=== PATIENT | male | born 1960 | race Caucasian/White ===

== ENCOUNTER 2022-05-17 07:19 | Outpatient (CLI) | payer BC ==
[2022-05-17] MEDS ORDERED: Iopamidol 370 76% 100 ML VIAL ONE (09:20)
[2022-05-17] MEDS ORDERED: GASTROGRAFIN 30 ML BOT ONE (09:20)
== END 2022-05-17 07:20 | disposition home or self-care (01) ==
LOC: CT 07:19
PROVIDERS: ATTEND Surgery
DX: K35.33 Acute appendicitis with perforation, localized peritonitis, and gangrene, with abscess (principal); R18.8 Other ascites; J90 Pleural effusion, not elsewhere classified; K61.1 Rectal abscess; N30.80 Other cystitis without hematuria; M89.9 Disorder of bone, unspecified; Z98.890 Other specified postprocedural states
CPT/HCPCS: 74177

== ENCOUNTER → 2022-07-26 | Day surgery (SDC) | payer BC ==
[2022-07-25 11:29] VITALS: BMI 32.1
[~2022-07-26] MED LIST: FENTANYL 50 MCG/ML VIAL 50 MCG/ML VIAL ONE; FLU VACC QS2022-23(6MOS UP)/PF 60 MCG/0.5 ML SYRINGE IM ONE; Midazolam HCl 2 mg/2 ml Vial ONE; Sodium Bicarbonate 2.5 MEQ/5 ML VIAL ONE
[2022-07-26 10:00] VITALS: BP 110/61; TEMP 97.5
== END | disposition home or self-care (01) ==
LOC: CT 09:01
PROVIDERS: ATTEND Internal Medicine
DX: D61.818 Other pancytopenia (principal); M25.552 Pain in left hip; M89.8X9 Other specified disorders of bone, unspecified site; M06.9 Rheumatoid arthritis, unspecified; I10 Essential (primary) hypertension; K21.9 Gastro-esophageal reflux disease without esophagitis; Z53.8 Procedure and treatment not carried out for other reasons; Z79.899 Other long term (current) drug therapy
CPT/HCPCS: 76380; 77012; J2250; J3010

== ENCOUNTER 2022-10-03 12:31 | Inpatient (IN) | payer BC ==
[2022-10-03 13:51] LABS: #Lymphocytes 1.8 thou/uL (1.20-3.40); #Monocytes 0.9 thou/uL (0.11-0.59); #Neutrophils 5.2 thou/uL (1.40-6.50); %Basophils 0.3 % (0.0-1.0); %Eosinophils 0.5 % (0.0-10.0); %Lymphocytes 22.4 % (21.0-51.0); %Neutrophils 65.8 % (42.0-75.0); Hemoglobin 13.1 g/dL (14.0-18.0); Mean Corpuscular HGB CONC 33.2 g/dL (32.0-36.0); Mean Corpuscular Hemoglobin 29.7 pg (27.0-31.0); Mean Corpuscular Volume 89.4 fl (78.0-98.0); Platelet Count 172 10x3/uL (130-400); RBC Distribution Width 17.6 % (11.5-14.5); White Blood Cell (WBC) Count 7.9 10x3/uL (4.8-10.8)
[2022-10-03 14:10] LABS: ALT (SGPT) 10 U/L (8-55); AST (SGOT) 41 U/L (5-34); Alkaline Phosphatase 1344 U/L (40-110); Anion Gap 15 mmol/L (10-20); BUN (Urea Nitrogen) 15 mg/dL (8.4-25.7); Bilirubin, Total 1.8 mg/dL (0.2-1.2); Calc. Creatinine Clearance 0 mL/min (70-130); Carbon Dioxide 21 mmol/L (23-31); Chloride 100 mmol/L (98-107); Estimated GFR 113; Globulin 3.2 g/dL (2.4-3.5); Glucose 111 mg/dL (80-115); Magnesium 1.9 mg/dL (1.6-2.6); Potassium 4.2 mmol/L (3.5-5.1); Protein, Total 7.2 g/dL (5.8-8.1); Sodium 132 mmol/L (136-145)
[2022-10-03] MEDS ORDERED: Iopamidol-370 76% 500 ML 1 ML ONE (14:19)
[2022-10-03] MEDS ORDERED: HYDROcodone/Acetaminophen 10/325 mg Tablet ONE ×2 (15:09→21:55)
[2022-10-03] MEDS ORDERED: cefTRIAXone\\ROCEPHIN 1 GM VIAL ONE (15:24)
[2022-10-03] MEDS ORDERED: Morphine 4 MG/ML VIAL ONE (17:06)
[2022-10-03 17:27] LABS: Lactic Acid 1.5 mmol/L (0.5-2.2)
[2022-10-03 17:34] LABS: CK (CPK) 70 U/L (30-200); Lipase 25 U/L (8-78)
[2022-10-03 17:50] LABS: Bilirubin Negative (Negative); Blood, Urine Negative (Negative); Clarity Clear (Clear); Glucose, Urine (Dipstick) Normal (Negative); Ketone, Urine Negative (Negative); Leukocyte Negative Leu/uL (Negative); Nitrite Negative (Negative); Protein, Urine (Dipstick) 10 mg/dL (Neg-Trace); Specific Gravity, Urine 1.029 (1.002-1.036)
[2022-10-03 19:59] LABS: SARS-CoV-2 NAA Rapid Test Not Detected (NotDetected)
[2022-10-03] MEDS ORDERED: Acetaminophen 325 MG TAB PO PRN ×2 (20:18→22:30)
[2022-10-03] MEDS: HYDROcodone/Acetaminophen 10/325 mg Tablet PO PRN (22:02)
[2022-10-03] MEDS ORDERED: Ondansetron ODT 8 MG TAB PO PRN (22:05)
[2022-10-04] MEDS ORDERED: HYDROcodone/Acetaminophen 10/325 mg Tablet ONE ×2 (02:04→09:07)
[2022-10-04] MEDS: HYDROcodone/Acetaminophen 10/325 mg Tablet PO PRN ×4 (02:06→20:55)
[2022-10-04 08:34] LABS: INR-International Normal Ratio 1.3; Prothrombin Time 16.5 sec (12.0-14.7)
[2022-10-04] MEDS: Lactated Ringer's 1,000 ML IV SCH ×2 (08:35→14:26)
[2022-10-04] MEDS: Magnesium Oxide 400 MG TAB PO SCH (09:00)
[2022-10-04] MEDS ORDERED: Gabapentin 300 MG CAP PO SCH (09:00)
[2022-10-04] MEDS: Tamsulosin HCl 0.4 MG CAP PO SCH (09:00)
[2022-10-04] MEDS: Methocarbamol 500 MG TAB PO SCH ×2 (09:00→21:06)
[2022-10-04] MEDS ORDERED: Apalutamide [Erleada] 60 MG Tablet PO SCH (09:00)
[2022-10-04] MEDS ORDERED: Polyethylene Glycol 3350 17 GM Packet PO SCH (09:00)
[2022-10-04] MEDS: Calcium Carbonate 600 MG + Vit D TAB PO SCH (09:00)
[2022-10-04] MEDS ORDERED: Tumeric/Ging/Olive/Oreg/Capryl [Candicidal Capsule] PO SCH (09:00)
[2022-10-04] MEDS ORDERED: Naloxone HCl 2 MG in Sodium Chloride 0.9% 500 ML IV PRN (09:47)
[2022-10-04] MEDS ORDERED: Lorazepam 2 MG/ML VIAL SLOW IVP SCH (12:30)
[2022-10-04] MEDS ORDERED: LORazepam 2 MG/ML SYR.(CARPUJECT) ONE (12:35)
[2022-10-04] MEDS: Gabapentin 300 MG CAP PO SCH ×2 (14:26→20:54)
[2022-10-04 14:32] VITALS: BMI 24.4
[2022-10-04] MEDS: fentaNYL 50 mcg/hour Patch TD SCH (15:03)
[2022-10-04] MEDS: Morphine 2 MG/ML VIAL SLOW IVP PRN ×2 (18:01→21:07)
[2022-10-04] MEDS: Famotidine 20 MG TAB PO SCH (20:56)
[2022-10-04] MEDS: Mirtazapine 15 MG Soltab PO SCH (20:56)
[2022-10-04] MEDS: Senokot 8.6 MG TAB PO SCH (20:56)
[2022-10-04] MEDS: Polyethylene Glycol 3350 17 GM Packet PO SCH (20:57)
[2022-10-05] MEDS: Lactated Ringer's 1,000 ML IV SCH (00:30)
[2022-10-05] MEDS: Calcium Carbonate 600 MG + Vit D TAB PO SCH (08:13)
[2022-10-05] MEDS: Magnesium Oxide 400 MG TAB PO SCH (08:13)
[2022-10-05] MEDS: Polyethylene Glycol 3350 17 GM Packet PO SCH ×2 (08:13→21:01)
[2022-10-05] MEDS: Gabapentin 300 MG CAP PO SCH ×3 (08:13→20:58)
[2022-10-05] MEDS: Tamsulosin HCl 0.4 MG CAP PO SCH (08:14)
[2022-10-05] MEDS: Morphine 2 MG/ML VIAL SLOW IVP PRN (08:29)
[2022-10-05] MEDS: Methocarbamol 500 MG TAB PO SCH ×2 (13:34→20:59)
[2022-10-05] MEDS: HYDROcodone/Acetaminophen 10/325 mg Tablet PO PRN ×2 (13:36→21:06)
[2022-10-05] MEDS: Mirtazapine 15 MG Soltab PO SCH (20:58)
[2022-10-05] MEDS: Famotidine 20 MG TAB PO SCH (20:58)
[2022-10-05] MEDS: Senokot 8.6 MG TAB PO SCH (21:01)
[2022-10-06] MEDS: HYDROcodone/Acetaminophen 10/325 mg Tablet PO PRN ×4 (04:54→22:50)
[2022-10-06] MEDS: Gabapentin 300 MG CAP PO SCH ×3 (09:42→21:08)
[2022-10-06] MEDS: Calcium Carbonate 600 MG + Vit D TAB PO SCH (09:42)
[2022-10-06] MEDS: Methocarbamol 500 MG TAB PO SCH ×2 (09:42→21:08)
[2022-10-06] MEDS: Tamsulosin HCl 0.4 MG CAP PO SCH (09:43)
[2022-10-06] MEDS: Magnesium Oxide 400 MG TAB PO SCH (09:43)
[2022-10-06] MEDS: Polyethylene Glycol 3350 17 GM Packet PO SCH ×2 (09:43→21:07)
[2022-10-06] MEDS: Senokot 8.6 MG TAB PO SCH (21:06)
[2022-10-06] MEDS: Famotidine 20 MG TAB PO SCH (21:07)
[2022-10-06] MEDS: Mirtazapine 15 MG Soltab PO SCH (21:39)
[2022-10-07] MEDS: HYDROcodone/Acetaminophen 10/325 mg Tablet PO PRN ×2 (04:58→13:14)
[2022-10-07] MEDS ORDERED: Magnevist 469MG/ML 20 ML VIAL ONE ×2 (09:07)
[2022-10-07] MEDS: Methocarbamol 500 MG TAB PO SCH ×2 (09:44→20:21)
[2022-10-07] MEDS: Calcium Carbonate 600 MG + Vit D TAB PO SCH (09:45)
[2022-10-07] MEDS: Tamsulosin HCl 0.4 MG CAP PO SCH (09:45)
[2022-10-07] MEDS: Gabapentin 300 MG CAP PO SCH ×3 (09:45→20:21)
[2022-10-07] MEDS: Magnesium Oxide 400 MG TAB PO SCH (09:49)
[2022-10-07] MEDS: Lactated Ringer's 500 ML IV SCH ×2 (09:51→18:18)
[2022-10-07] MEDS: Polyethylene Glycol 3350 17 GM Packet PO SCH ×2 (10:10→19:38)
[2022-10-07 10:58] LABS: Anion Gap 9 mmol/L (10-20); BUN (Urea Nitrogen) 6 mg/dL (8.4-25.7); Calc. Creatinine Clearance 216 mL/min (70-130); Calcium 8.6 mg/dL (7.8-10.44); Carbon Dioxide 27 mmol/L (23-31); Chloride 103 mmol/L (98-107); Estimated GFR 122; Glucose 113 mg/dL (80-115); Magnesium 1.8 mg/dL (1.6-2.6); Phosphorus 3.3 mg/dL (2.3-4.7); Potassium 4.2 mmol/L (3.5-5.1); Sodium 135 mmol/L (136-145)
[2022-10-07] MEDS ORDERED: Morphine 2 MG/ML VIAL SLOW IVP PRN (11:04)
[2022-10-07] MEDS ORDERED: Morphine 4 MG/ML VIAL SLOW IVP SCH (13:40)
[2022-10-07] MEDS: fentaNYL 50 mcg/hour Patch TD SCH (16:39)
[2022-10-07] MEDS: Lactated Ringer's 1,000 ML IV SCH (18:16)
[2022-10-07] MEDS: Morphine 2 MG/ML VIAL SLOW IVP PRN (19:34)
[2022-10-07] MEDS: Famotidine 20 MG TAB PO SCH (20:21)
[2022-10-07] MEDS: Mirtazapine 15 MG Soltab PO SCH (20:21)
[2022-10-07] MEDS: Senokot 8.6 MG TAB PO SCH (20:21)
[2022-10-08] MEDS: Lactated Ringer's 1,000 ML IV SCH (03:30)
[2022-10-08] MEDS: Morphine 2 MG/ML VIAL SLOW IVP PRN (05:27)
[2022-10-08] MEDS ORDERED: Morphine 2 MG/ML VIAL SLOW IVP PRN (10:17)
[2022-10-08 10:28] LABS: #Eosinphils 0.1 thou/uL (0.0-0.7); #Lymphocytes 1.5 thou/uL (1.20-3.40); #Monocytes 0.3 thou/uL (0.11-0.59); %Basophils 0.3 % (0.0-1.0); %Eosinophils 2.9 % (0.0-10.0); %Lymphocytes 36.9 % (21.0-51.0); %Monocytes 8.4 % (0.0-10.0); %Neutrophils 51.5 % (42.0-75.0); Hemoglobin 10.9 g/dL (14.0-18.0); Mean Corpuscular HGB CONC 31.3 g/dL (32.0-36.0); Mean Corpuscular Hemoglobin 28.6 pg (27.0-31.0); Mean Corpuscular Volume 91.2 fl (78.0-98.0); Mean Platelet Volume 6.7 fL (7.4-10.4); Platelet Count 151 10x3/uL (130-400); RBC Distribution Width 16.8 % (11.5-14.5)
[2022-10-08 10:52] LABS: ALT (SGPT) 13 U/L (8-55); AST (SGOT) 28 U/L (5-34); Albumin 3.2 g/dL (3.4-4.8); Alkaline Phosphatase 981 U/L (40-110); Anion Gap 11 mmol/L (10-20); BUN (Urea Nitrogen) 7 mg/dL (8.4-25.7); Bilirubin, Total 0.8 mg/dL (0.2-1.2); Calc. Creatinine Clearance 216 mL/min (70-130); Calcium 8.4 mg/dL (7.8-10.44); Carbon Dioxide 25 mmol/L (23-31); Chloride 102 mmol/L (98-107); Estimated GFR 122; Globulin 2.8 g/dL (2.4-3.5); Glucose 98 mg/dL (80-115); Potassium 4.2 mmol/L (3.5-5.1); Sodium 134 mmol/L (136-145)
[2022-10-08] MEDS: HYDROcodone/Acetaminophen 10/325 mg Tablet PO SCH ×3 (11:54→23:15)
[2022-10-08] MEDS ORDERED: Sodium Bicarbonate 2.5 MEQ/5 ML VIAL ONE (12:43)
[2022-10-08] MEDS ORDERED: fentaNYL 75 mcg/hour Patch TD SCH (13:00)
[2022-10-08] MEDS ORDERED: Fentanyl 250 MCG/5 ML VIAL ONE (13:21)
[2022-10-08] MEDS ORDERED: Midazolam HCl 2 mg/2 ml Vial ONE (13:21)
[2022-10-08] MEDS ORDERED: PROPOFOL 200 MG/20 ML VIAL ONE (13:35)
[2022-10-08] MEDS ORDERED: PHENYLEPHRINE-NS 100 MCG/ML 10 ML SYRINGE ONE (13:35)
[2022-10-08] MEDS ORDERED: Lidocaine 1% PF 5 ML VIAL ONE (13:35)
[2022-10-08] MEDS ORDERED: Ondansetron PF 4 MG/2 ML Vial ONE (13:35)
[2022-10-08] MEDS ORDERED: Rocuronium Bromide 10 MG/ML (10ML VIAL) ONE (13:35)
[2022-10-08] MEDS ORDERED: SUGAMMADEX SODIUM 200 MG/2 ML VIAL ONE (14:01)
[2022-10-08] MEDS ORDERED: Ondansetron HCl/PF 4 MG/2 ML Vial IVP PRN (14:52)
[2022-10-08] MEDS ORDERED: HYDROmorphone 2 MG/ML VIAL SLOW IVP PRN (14:52)
[2022-10-08] MEDS ORDERED: Promethazine HCl 25 MG/ML VIAL IM PRN (14:52)
[2022-10-08] MEDS ORDERED: Morphine 2 MG/ML VIAL ONE (15:38)
[2022-10-08] MEDS: Polyethylene Glycol 3350 17 GM Packet PO SCH ×2 (16:06→20:19)
[2022-10-08] MEDS: Calcium Carbonate 600 MG + Vit D TAB PO SCH (16:06)
[2022-10-08] MEDS: Methocarbamol 500 MG TAB PO SCH ×2 (16:09→20:18)
[2022-10-08] MEDS: Gabapentin 300 MG CAP PO SCH ×3 (16:15→20:18)
[2022-10-08] MEDS: Tamsulosin HCl 0.4 MG CAP PO SCH (16:15)
[2022-10-08] MEDS: Magnesium Oxide 400 MG TAB PO SCH (16:16)
[2022-10-08] MEDS ORDERED: Methocarbamol 500 MG TAB PO SCH (17:00)
[2022-10-08] MEDS: Morphine 2 MG/ML VIAL SLOW IVP SCH ×3 (18:05→20:19)
[2022-10-08] MEDS: Famotidine 20 MG TAB PO SCH (20:17)
[2022-10-08] MEDS: Senokot 8.6 MG TAB PO SCH (20:17)
[2022-10-08] MEDS: Mirtazapine 15 MG Soltab PO SCH (20:18)
[2022-10-09] MEDS ORDERED: Morphine 2 MG/ML VIAL SLOW IVP PRN (03:08)
[2022-10-09] MEDS: HYDROcodone/Acetaminophen 10/325 mg Tablet PO SCH ×4 (05:49→23:45)
[2022-10-09 07:02] LABS: #Eosinphils 0.1 thou/uL (0.0-0.7); #Lymphocytes 1.3 thou/uL (1.20-3.40); #Monocytes 0.4 thou/uL (0.11-0.59); #Neutrophils 2.4 thou/uL (1.40-6.50); %Basophils 0.3 % (0.0-1.0); %Eosinophils 1.8 % (0.0-10.0); %Lymphocytes 31.5 % (21.0-51.0); %Monocytes 9.1 % (0.0-10.0); %Neutrophils 57.3 % (42.0-75.0); Hemoglobin 10.4 g/dL (14.0-18.0); Mean Corpuscular HGB CONC 32.7 g/dL (32.0-36.0); Mean Corpuscular Hemoglobin 29.7 pg (27.0-31.0); Mean Platelet Volume 6.9 fL (7.4-10.4); Platelet Count 152 10x3/uL (130-400); RBC Distribution Width 16.7 % (11.5-14.5); White Blood Cell (WBC) Count 4.2 10x3/uL (4.8-10.8)
[2022-10-09] MEDS: Polyethylene Glycol 3350 17 GM Packet PO SCH ×2 (09:29→20:41)
[2022-10-09] MEDS: Methocarbamol 500 MG TAB PO SCH ×2 (09:29→20:40)
[2022-10-09] MEDS: Magnesium Oxide 400 MG TAB PO SCH (09:29)
[2022-10-09] MEDS: Tamsulosin HCl 0.4 MG CAP PO SCH (09:29)
[2022-10-09] MEDS: Calcium Carbonate 600 MG + Vit D TAB PO SCH (09:30)
[2022-10-09] MEDS: Gabapentin 300 MG CAP PO SCH ×3 (09:33→20:40)
[2022-10-09] MEDS: Morphine 4 MG/ML VIAL SLOW IVP SCH ×3 (12:58→20:37)
[2022-10-09] MEDS ORDERED: DRY MOUTH SPRAY MM PRN (15:14)
[2022-10-09] MEDS: Mirtazapine 15 MG Soltab PO SCH (20:39)
[2022-10-09] MEDS: Famotidine 20 MG TAB PO SCH (20:40)
[2022-10-09] MEDS: Senokot 8.6 MG TAB PO SCH (20:41)
[2022-10-10] MEDS: Morphine 4 MG/ML VIAL SLOW IVP SCH ×4 (01:18→13:32)
[2022-10-10] MEDS: HYDROcodone/Acetaminophen 10/325 mg Tablet PO SCH ×4 (05:59→20:54)
[2022-10-10 08:50] LABS: #Eosinphils 0.1 thou/uL (0.0-0.7); #Lymphocytes 1.2 thou/uL (1.20-3.40); #Monocytes 0.4 thou/uL (0.11-0.59); #Neutrophils 2.5 thou/uL (1.40-6.50); %Basophils 0.5 % (0.0-1.0); %Eosinophils 1.5 % (0.0-10.0); %Lymphocytes 28.9 % (21.0-51.0); %Monocytes 10.2 % (0.0-10.0); %Neutrophils 58.9 % (42.0-75.0); Hemoglobin 10.6 g/dL (14.0-18.0); Mean Corpuscular HGB CONC 32.8 g/dL (32.0-36.0); Mean Corpuscular Hemoglobin 29.8 pg (27.0-31.0); Mean Corpuscular Volume 90.8 fl (78.0-98.0); Platelet Count 137 10x3/uL (130-400); RBC Distribution Width 16.5 % (11.5-14.5); Red Blood Cell (RBC) Count 3.54 mill/uL (4.70-6.10); White Blood Cell (WBC) Count 4.2 10x3/uL (4.8-10.8)
[2022-10-10] MEDS ORDERED: fentaNYL 75 mcg/hour Patch TD SCH (09:00)
[2022-10-10] MEDS: Polyethylene Glycol 3350 17 GM Packet PO SCH ×2 (09:18→20:47)
[2022-10-10] MEDS: Methocarbamol 500 MG TAB PO SCH ×2 (09:18→20:55)
[2022-10-10] MEDS: Tamsulosin HCl 0.4 MG CAP PO SCH (09:18)
[2022-10-10] MEDS: Calcium Carbonate 600 MG + Vit D TAB PO SCH (09:19)
[2022-10-10] MEDS: Gabapentin 300 MG CAP PO SCH ×3 (09:19→20:54)
[2022-10-10] MEDS: Magnesium Oxide 400 MG TAB PO SCH (09:19)
[2022-10-10 14:53] LABS: ALT (SGPT) 9 U/L (8-55); AST (SGOT) 26 U/L (5-34); Albumin 3.2 g/dL (3.4-4.8); Alkaline Phosphatase 909 U/L (40-110); Anion Gap 11 mmol/L (10-20); BUN (Urea Nitrogen) 7 mg/dL (8.4-25.7); Calc. Creatinine Clearance 221 mL/min (70-130); Calcium 8.8 mg/dL (7.8-10.44); Carbon Dioxide 25 mmol/L (23-31); Chloride 99 mmol/L (98-107); Estimated GFR 123; Globulin 2.5 g/dL (2.4-3.5); Glucose 96 mg/dL (80-115); Protein, Total 5.7 g/dL (5.8-8.1); Sodium 131 mmol/L (136-145)
[2022-10-10 15:07] LABS: #Eosinphils 0.1 thou/uL (0.0-0.7); #Lymphocytes 1.5 thou/uL (1.20-3.40); #Monocytes 0.4 thou/uL (0.11-0.59); #Neutrophils 2.3 thou/uL (1.40-6.50); %Basophils 0.4 % (0.0-1.0); %Eosinophils 1.4 % (0.0-10.0); %Lymphocytes 34.2 % (21.0-51.0); %Monocytes 10.1 % (0.0-10.0); %Neutrophils 53.9 % (42.0-75.0); Hemoglobin 10.5 g/dL (14.0-18.0); Mean Corpuscular HGB CONC 32.2 g/dL (32.0-36.0); Mean Corpuscular Hemoglobin 29.1 pg (27.0-31.0); Mean Corpuscular Volume 90.4 fl (78.0-98.0); Mean Platelet Volume 7.2 fL (7.4-10.4); Platelet Count 146 10x3/uL (130-400); RBC Distribution Width 16.6 % (11.5-14.5); Red Blood Cell (RBC) Count 3.61 mill/uL (4.70-6.10); White Blood Cell (WBC) Count 4.3 10x3/uL (4.8-10.8)
[2022-10-10] MEDS ORDERED: Iopamidol-370 76% 500 ML 1 ML ONE (15:20)
[2022-10-10] MEDS ORDERED: Bisacodyl 5 MG TAB PO PRN (15:47)
[2022-10-10] MEDS: Naproxen 500 MG TAB PO SCH (20:49)
[2022-10-10] MEDS: Famotidine 20 MG TAB PO SCH (20:49)
[2022-10-10] MEDS: Mirtazapine 15 MG Soltab PO SCH (20:55)
[2022-10-10] MEDS: Senokot 8.6 MG TAB PO SCH (21:07)
[2022-10-11] MEDS: HYDROcodone/Acetaminophen 10/325 mg Tablet PO SCH ×3 (00:25→09:20)
[2022-10-11] MEDS ORDERED: Morphine 4 MG/ML VIAL SLOW IVP SCH ×2 (00:45→02:15)
[2022-10-11 05:12] LABS: #Eosinphils 0.1 thou/uL (0.0-0.7); #Lymphocytes 1.5 thou/uL (1.20-3.40); #Monocytes 0.5 thou/uL (0.11-0.59); #Neutrophils 2.1 thou/uL (1.40-6.50); %Basophils 0.3 % (0.0-1.0); %Eosinophils 2.3 % (0.0-10.0); %Lymphocytes 36.9 % (21.0-51.0); %Monocytes 10.8 % (0.0-10.0); %Neutrophils 49.8 % (42.0-75.0); Hemoglobin 10.4 g/dL (14.0-18.0); Mean Corpuscular HGB CONC 31.9 g/dL (32.0-36.0); Mean Corpuscular Hemoglobin 28.9 pg (27.0-31.0); Mean Corpuscular Volume 90.4 fl (78.0-98.0); Mean Platelet Volume 7.1 fL (7.4-10.4); Platelet Count 142 10x3/uL (130-400); RBC Distribution Width 16.5 % (11.5-14.5); Red Blood Cell (RBC) Count 3.59 mill/uL (4.70-6.10); White Blood Cell (WBC) Count 4.2 10x3/uL (4.8-10.8)
[2022-10-11 05:31] LABS: ALT (SGPT) 10 U/L (8-55); AST (SGOT) 26 U/L (5-34); Albumin 3.2 g/dL (3.4-4.8); Alkaline Phosphatase 921 U/L (40-110); Anion Gap 12 mmol/L (10-20); BUN (Urea Nitrogen) 9 mg/dL (8.4-25.7); Bilirubin, Total 0.9 mg/dL (0.2-1.2); Calc. Creatinine Clearance 201 mL/min (70-130); Calcium 8.3 mg/dL (7.8-10.44); Carbon Dioxide 26 mmol/L (23-31); Chloride 101 mmol/L (98-107); Estimated GFR 120; Globulin 2.8 g/dL (2.4-3.5); Glucose 121 mg/dL (80-115); Potassium 3.9 mmol/L (3.5-5.1); Sodium 135 mmol/L (136-145)
[2022-10-11] MEDS: Gabapentin 300 MG CAP PO SCH ×3 (09:19→20:26)
[2022-10-11] MEDS: Polyethylene Glycol 3350 17 GM Packet PO SCH ×2 (09:20→20:25)
[2022-10-11] MEDS: Tamsulosin HCl 0.4 MG CAP PO SCH (09:20)
[2022-10-11] MEDS: Calcium Carbonate 600 MG + Vit D TAB PO SCH (09:21)
[2022-10-11] MEDS: Methocarbamol 500 MG TAB PO SCH ×2 (09:22→20:26)
[2022-10-11] MEDS: Magnesium Oxide 400 MG TAB PO SCH (09:22)
[2022-10-11] MEDS: Naproxen 500 MG TAB PO SCH ×2 (09:22→20:26)
[2022-10-11] MEDS ORDERED: Magnevist 469MG/ML 20 ML VIAL ONE (10:53)
[2022-10-11] MEDS: Morphine 4 MG/ML VIAL SLOW IVP PRN ×4 (13:01→19:43)
[2022-10-11] MEDS: fentaNYL 100 mcg/hour Patch TD SCH (13:30)
[2022-10-11] MEDS: Mirtazapine 15 MG Soltab PO SCH (20:26)
[2022-10-11] MEDS: Famotidine 20 MG TAB PO SCH (20:27)
[2022-10-11] MEDS: Senokot 8.6 MG TAB PO SCH (20:27)
[2022-10-12] MEDS: Morphine 4 MG/ML VIAL SLOW IVP PRN ×9 (00:24→21:02)
[2022-10-12 05:18] LABS: #Eosinphils 0.1 thou/uL (0.0-0.7); #Monocytes 0.4 thou/uL (0.11-0.59); #Neutrophils 2.3 thou/uL (1.40-6.50); %Basophils 0.2 % (0.0-1.0); %Eosinophils 1.4 % (0.0-10.0); %Lymphocytes 27.6 % (21.0-51.0); %Monocytes 9.6 % (0.0-10.0); %Neutrophils 61.2 % (42.0-75.0); Hemoglobin 10.3 g/dL (14.0-18.0); Mean Corpuscular HGB CONC 32.9 g/dL (32.0-36.0); Mean Corpuscular Hemoglobin 29.8 pg (27.0-31.0); Mean Corpuscular Volume 90.6 fl (78.0-98.0); Platelet Count 143 10x3/uL (130-400); RBC Distribution Width 16.4 % (11.5-14.5); Red Blood Cell (RBC) Count 3.46 mill/uL (4.70-6.10); White Blood Cell (WBC) Count 3.8 10x3/uL (4.8-10.8)
[2022-10-12 05:40] LABS: ALT (SGPT) 7 U/L (8-55); AST (SGOT) 24 U/L (5-34); Albumin 3.3 g/dL (3.4-4.8); Alkaline Phosphatase 876 U/L (40-110); Anion Gap 11 mmol/L (10-20); BUN (Urea Nitrogen) 9 mg/dL (8.4-25.7); Bilirubin, Total 0.7 mg/dL (0.2-1.2); Calc. Creatinine Clearance 221 mL/min (70-130); Calcium 8.1 mg/dL (7.8-10.44); Carbon Dioxide 27 mmol/L (23-31); Chloride 100 mmol/L (98-107); Estimated GFR 123; Globulin 2.6 g/dL (2.4-3.5); Glucose 129 mg/dL (80-115); Potassium 4.3 mmol/L (3.5-5.1); Protein, Total 5.9 g/dL (5.8-8.1); Sodium 134 mmol/L (136-145)
[2022-10-12] MEDS: Gabapentin 300 MG CAP PO SCH ×3 (08:56→21:42)
[2022-10-12] MEDS: Methocarbamol 500 MG TAB PO SCH ×2 (08:57→21:43)
[2022-10-12] MEDS: Tamsulosin HCl 0.4 MG CAP PO SCH (08:57)
[2022-10-12] MEDS: Naproxen 500 MG TAB PO SCH ×2 (08:57→21:41)
[2022-10-12] MEDS: Calcium Carbonate 600 MG + Vit D TAB PO SCH (08:58)
[2022-10-12] MEDS: Magnesium Oxide 400 MG TAB PO SCH (08:58)
[2022-10-12] MEDS: Polyethylene Glycol 3350 17 GM Packet PO SCH ×2 (08:58→21:40)
[2022-10-12] MEDS: Senokot 8.6 MG TAB PO SCH (21:42)
[2022-10-12] MEDS: Famotidine 20 MG TAB PO SCH (21:43)
[2022-10-12] MEDS: Mirtazapine 15 MG Soltab PO SCH (21:43)
[2022-10-13 05:39] LABS: #Eosinphils 0.1 thou/uL (0.0-0.7); #Lymphocytes 1.1 thou/uL (1.20-3.40); #Monocytes 0.3 thou/uL (0.11-0.59); #Neutrophils 1.9 thou/uL (1.40-6.50); %Basophils 0.8 % (0.0-1.0); %Eosinophils 2.6 % (0.0-10.0); %Lymphocytes 31.9 % (21.0-51.0); %Monocytes 7.8 % (0.0-10.0); %Neutrophils 56.9 % (42.0-75.0); Hemoglobin 10.1 g/dL (14.0-18.0); Mean Corpuscular HGB CONC 32.2 g/dL (32.0-36.0); Mean Corpuscular Hemoglobin 29.2 pg (27.0-31.0); Mean Corpuscular Volume 90.8 fl (78.0-98.0); Mean Platelet Volume 6.7 fL (7.4-10.4); Platelet Count 154 10x3/uL (130-400); RBC Distribution Width 16.2 % (11.5-14.5); Red Blood Cell (RBC) Count 3.47 mill/uL (4.70-6.10); White Blood Cell (WBC) Count 3.4 10x3/uL (4.8-10.8)
[2022-10-13 06:04] LABS: ALT (SGPT) Less than 7 U/L (8-55); AST (SGOT) 26 U/L (5-34); Albumin 3.1 g/dL (3.4-4.8); Alkaline Phosphatase 857 U/L (40-110); Anion Gap 12 mmol/L (10-20); BUN (Urea Nitrogen) 8 mg/dL (8.4-25.7); Bilirubin, Total 0.7 mg/dL (0.2-1.2); Calc. Creatinine Clearance 221 mL/min (70-130); Calcium 8.4 mg/dL (7.8-10.44); Carbon Dioxide 26 mmol/L (23-31); Chloride 101 mmol/L (98-107); Estimated GFR 123; Globulin 2.5 g/dL (2.4-3.5); Glucose 115 mg/dL (80-115); Protein, Total 5.6 g/dL (5.8-8.1); Sodium 135 mmol/L (136-145)
[2022-10-13] MEDS: Morphine 4 MG/ML VIAL SLOW IVP PRN ×5 (08:43→21:28)
[2022-10-13] MEDS: Tamsulosin HCl 0.4 MG CAP PO SCH (08:43)
[2022-10-13] MEDS: Naproxen 500 MG TAB PO SCH ×2 (08:44→21:17)
[2022-10-13] MEDS: Calcium Carbonate 600 MG + Vit D TAB PO SCH (08:44)
[2022-10-13] MEDS: Magnesium Oxide 400 MG TAB PO SCH (08:44)
[2022-10-13] MEDS: Polyethylene Glycol 3350 17 GM Packet PO SCH ×2 (08:45→21:34)
[2022-10-13] MEDS: Gabapentin 300 MG CAP PO SCH ×3 (08:45→21:16)
[2022-10-13] MEDS: Methocarbamol 500 MG TAB PO SCH ×2 (08:45→21:18)
[2022-10-13] MEDS: Famotidine 20 MG TAB PO SCH (21:17)
[2022-10-13] MEDS: Mirtazapine 15 MG Soltab PO SCH (21:18)
[2022-10-13] MEDS: Senokot 8.6 MG TAB PO SCH (21:35)
[2022-10-14] MEDS: Morphine 4 MG/ML VIAL SLOW IVP PRN ×3 (05:12→21:44)
[2022-10-14 05:23] LABS: #Eosinphils 0.1 thou/uL (0.0-0.7); #Lymphocytes 1.1 thou/uL (1.20-3.40); #Monocytes 0.3 thou/uL (0.11-0.59); #Neutrophils 1.8 thou/uL (1.40-6.50); %Basophils 0.2 % (0.0-1.0); %Eosinophils 2.4 % (0.0-10.0); %Lymphocytes 34.6 % (21.0-51.0); %Monocytes 8.6 % (0.0-10.0); %Neutrophils 54.2 % (42.0-75.0); Hemoglobin 10.1 g/dL (14.0-18.0); Mean Corpuscular HGB CONC 32.3 g/dL (32.0-36.0); Mean Corpuscular Hemoglobin 29.4 pg (27.0-31.0); Mean Corpuscular Volume 90.8 fl (78.0-98.0); Mean Platelet Volume 6.9 fL (7.4-10.4); Platelet Count 145 10x3/uL (130-400); RBC Distribution Width 16.4 % (11.5-14.5); Red Blood Cell (RBC) Count 3.46 mill/uL (4.70-6.10); White Blood Cell (WBC) Count 3.3 10x3/uL (4.8-10.8)
[2022-10-14 05:47] LABS: ALT (SGPT) Less than 7 U/L (8-55); AST (SGOT) 26 U/L (5-34); Albumin 3.2 g/dL (3.4-4.8); Alkaline Phosphatase 836 U/L (40-110); Anion Gap 9 mmol/L (10-20); BUN (Urea Nitrogen) 6 mg/dL (8.4-25.7); Bilirubin, Total 0.8 mg/dL (0.2-1.2); Calc. Creatinine Clearance 221 mL/min (70-130); Calcium 8.3 mg/dL (7.8-10.44); Carbon Dioxide 27 mmol/L (23-31); Chloride 103 mmol/L (98-107); Estimated GFR 123; Globulin 2.5 g/dL (2.4-3.5); Glucose 113 mg/dL (80-115); Potassium 3.7 mmol/L (3.5-5.1); Protein, Total 5.7 g/dL (5.8-8.1); Sodium 135 mmol/L (136-145)
[2022-10-14] MEDS ORDERED: CARBOplatin 750 MG in Sodium Chloride 0.9% 250 ML 250 ML IVPB SCH ×2 (08:30→09:30)
[2022-10-14] MEDS ORDERED: PALONOSETRON HCL 0.05 MG/ML 5 ML VIAL IVP SCH ×2 (08:30→09:00)
[2022-10-14] MEDS ORDERED: Dexamethasone 10 MG/ML VIAL SLOW IVP SCH (08:30)
[2022-10-14] MEDS ORDERED: PEGFILGRASTIM-JMDB 6 MG/0.6 ML SYRINGE SQ SCH (08:30)
[2022-10-14] MEDS: Gabapentin 300 MG CAP PO SCH ×3 (08:33→21:43)
[2022-10-14] MEDS: Methocarbamol 500 MG TAB PO SCH ×2 (08:33→21:44)
[2022-10-14] MEDS: Tamsulosin HCl 0.4 MG CAP PO SCH (08:33)
[2022-10-14] MEDS: Calcium Carbonate 600 MG + Vit D TAB PO SCH (08:33)
[2022-10-14] MEDS: Naproxen 500 MG TAB PO SCH ×2 (08:33→21:44)
[2022-10-14] MEDS: Polyethylene Glycol 3350 17 GM Packet PO SCH ×2 (08:34→21:46)
[2022-10-14] MEDS: Magnesium Oxide 400 MG TAB PO SCH (08:35)
[2022-10-14] MEDS: fentaNYL 100 mcg/hour Patch TD SCH (13:41)
[2022-10-14] MEDS: ETOPOSIDE IVPB SCH (13:59)
[2022-10-14] MEDS: SODIUM CHLORIDE 0.9% IVPB SCH (13:59)
[2022-10-14] MEDS: Famotidine 20 MG TAB PO SCH (21:44)
[2022-10-14] MEDS: Mirtazapine 15 MG Soltab PO SCH (21:44)
[2022-10-14] MEDS: Senokot 8.6 MG TAB PO SCH (21:46)
[2022-10-15] MEDS: Morphine 4 MG/ML VIAL SLOW IVP PRN ×3 (05:13→22:45)
[2022-10-15 05:40] LABS: #Lymphocytes 0.7 thou/uL (1.20-3.40); #Monocytes 0.2 thou/uL (0.11-0.59); #Neutrophils 2.2 thou/uL (1.40-6.50); %Basophils 0.4 % (0.0-1.0); %Eosinophils 0.4 % (0.0-10.0); %Lymphocytes 23.3 % (21.0-51.0); %Monocytes 6.7 % (0.0-10.0); %Neutrophils 69.1 % (42.0-75.0); Hemoglobin 9.7 g/dL (14.0-18.0); Mean Corpuscular HGB CONC 31.8 g/dL (32.0-36.0); Mean Corpuscular Hemoglobin 29.2 pg (27.0-31.0); Mean Corpuscular Volume 91.8 fl (78.0-98.0); Platelet Count 135 10x3/uL (130-400); Red Blood Cell (RBC) Count 3.32 mill/uL (4.70-6.10); White Blood Cell (WBC) Count 3.1 10x3/uL (4.8-10.8)
[2022-10-15 06:03] LABS: ALT (SGPT) 12 U/L (8-55); AST (SGOT) 27 U/L (5-34); Albumin 3.2 g/dL (3.4-4.8); Alkaline Phosphatase 834 U/L (40-110); Anion Gap 13 mmol/L (10-20); BUN (Urea Nitrogen) 12 mg/dL (8.4-25.7); Bilirubin, Total 0.9 mg/dL (0.2-1.2); Calc. Creatinine Clearance 216 mL/min (70-130); Calcium 8.4 mg/dL (7.8-10.44); Carbon Dioxide 24 mmol/L (23-31); Chloride 104 mmol/L (98-107); Estimated GFR 122; Globulin 2.6 g/dL (2.4-3.5); Glucose 133 mg/dL (80-115); Potassium 4.3 mmol/L (3.5-5.1); Protein, Total 5.8 g/dL (5.8-8.1); Sodium 137 mmol/L (136-145)
[2022-10-15] MEDS ORDERED: Sodium Chloride 0.9% 500 ML IV SCH (08:45)
[2022-10-15] MEDS: Naproxen 500 MG TAB PO SCH ×2 (09:19→21:14)
[2022-10-15] MEDS: Magnesium Oxide 400 MG TAB PO SCH (09:19)
[2022-10-15] MEDS: Calcium Carbonate 600 MG + Vit D TAB PO SCH (09:19)
[2022-10-15] MEDS: Gabapentin 300 MG CAP PO SCH ×3 (09:19→21:15)
[2022-10-15] MEDS: Methocarbamol 500 MG TAB PO SCH ×2 (09:19→21:14)
[2022-10-15] MEDS: Tamsulosin HCl 0.4 MG CAP PO SCH (09:19)
[2022-10-15] MEDS: Polyethylene Glycol 3350 17 GM Packet PO SCH ×2 (09:20→22:40)
[2022-10-15] MEDS: ETOPOSIDE IVPB SCH (11:21)
[2022-10-15] MEDS: SODIUM CHLORIDE 0.9% IVPB SCH (11:21)
[2022-10-15] MEDS ORDERED: Gabapentin 300 MG CAP PO SCH (21:00)
[2022-10-15] MEDS: Mirtazapine 15 MG Soltab PO SCH (21:14)
[2022-10-15] MEDS: Famotidine 20 MG TAB PO SCH (21:15)
[2022-10-15] MEDS: Senokot 8.6 MG TAB PO SCH (21:19)
[2022-10-16 06:55] LABS: #Eosinphils 0.1 thou/uL (0.0-0.7); #Lymphocytes 1.4 thou/uL (1.20-3.40); #Monocytes 0.2 thou/uL (0.11-0.59); #Neutrophils 1.7 thou/uL (1.40-6.50); %Basophils 0.2 % (0.0-1.0); %Eosinophils 2.3 % (0.0-10.0); %Lymphocytes 41.2 % (21.0-51.0); %Monocytes 5.9 % (0.0-10.0); %Neutrophils 50.4 % (42.0-75.0); Hemoglobin 9.8 g/dL (14.0-18.0); Mean Corpuscular HGB CONC 31.4 g/dL (32.0-36.0); Mean Corpuscular Hemoglobin 29.3 pg (27.0-31.0); Mean Platelet Volume 6.7 fL (7.4-10.4); Platelet Count 140 10x3/uL (130-400); RBC Distribution Width 16.3 % (11.5-14.5); Red Blood Cell (RBC) Count 3.35 mill/uL (4.70-6.10); White Blood Cell (WBC) Count 3.4 10x3/uL (4.8-10.8)
[2022-10-16 07:19] LABS: ALT (SGPT) Less than 7 U/L (8-55); AST (SGOT) 43 U/L (5-34); Alkaline Phosphatase 797 U/L (40-110); Anion Gap 11 mmol/L (10-20); BUN (Urea Nitrogen) 14 mg/dL (8.4-25.7); Bilirubin, Total 0.6 mg/dL (0.2-1.2); Calc. Creatinine Clearance 211 mL/min (70-130); Calcium 8.3 mg/dL (7.8-10.44); Carbon Dioxide 26 mmol/L (23-31); Chloride 104 mmol/L (98-107); Estimated GFR 122; Globulin 2.3 g/dL (2.4-3.5); Glucose 99 mg/dL (80-115); Potassium 3.9 mmol/L (3.5-5.1); Protein, Total 5.3 g/dL (5.8-8.1); Sodium 137 mmol/L (136-145)
[2022-10-16] MEDS: Morphine 4 MG/ML VIAL SLOW IVP PRN ×7 (07:36→23:25)
[2022-10-16 07:47] LABS: Bacteria/HPF 4+ HPF (None Seen); Bilirubin Negative (Negative); Blood, Urine 3+ (Negative); CAUTI Indications for Culture Acute Hematuria; Clarity Turbid (Clear); Glucose, Urine (Dipstick) Normal (Negative); Ketone, Urine Negative (Negative); Leukocyte 500 Leu/uL (Negative); Nitrite 2+ (Negative); Protein, Urine (Dipstick) 50 mg/dL (Neg-Trace); RBC/HPF Greater than 50 HPF (0-3); Specific Gravity, Urine 1.036 (1.002-1.036); Squamous Epithelial None Seen HPF (0-3); Urobilinogen 6 mg/dL (Less than 2); WBC/HPF Greater than 50 HPF (0-3)
[2022-10-16 07:49] LABS: Urine Culture Reflex Yes Yes
[2022-10-16] MEDS: Gabapentin 300 MG CAP PO SCH (09:13)
[2022-10-16] MEDS: Polyethylene Glycol 3350 17 GM Packet PO SCH ×2 (09:22→20:11)
[2022-10-16] MEDS: Naproxen 500 MG TAB PO SCH ×2 (09:22→20:10)
[2022-10-16] MEDS: Calcium Carbonate 600 MG + Vit D TAB PO SCH (09:22)
[2022-10-16] MEDS: Tamsulosin HCl 0.4 MG CAP PO SCH (09:22)
[2022-10-16] MEDS: Methocarbamol 500 MG TAB PO SCH ×2 (09:22→20:10)
[2022-10-16] MEDS: Magnesium Oxide 400 MG TAB PO SCH (09:23)
[2022-10-16] MEDS: cefTRIAXone\\ROCEPHIN 1 GM in Sodium Chloride 0.9% 100 ML IVPB SCH (10:41)
[2022-10-16] MEDS ORDERED: Dexamethasone 10 MG in Sodium Chloride 0.9% 50 ML IVPB SCH (12:04)
[2022-10-16] MEDS ORDERED: Dexamethasone 4 mg/ml Vial SLOW IVP SCH (12:30)
[2022-10-16] MEDS: ETOPOSIDE IVPB SCH (12:57)
[2022-10-16] MEDS: SODIUM CHLORIDE 0.9% IVPB SCH (12:57)
[2022-10-16] MEDS: Gabapentin 400 MG CAP PO SCH ×2 (15:10→20:10)
[2022-10-16] MEDS: Famotidine 20 MG TAB PO SCH (20:09)
[2022-10-16] MEDS: Mirtazapine 15 MG Soltab PO SCH (20:09)
[2022-10-16] MEDS: Senokot 8.6 MG TAB PO SCH (20:10)
[2022-10-17] MEDS: Morphine 4 MG/ML VIAL SLOW IVP PRN ×5 (07:42→20:15)
[2022-10-17 08:03] LABS: #Eosinphils 0.1 thou/uL (0.0-0.7); #Lymphocytes 1.2 thou/uL (1.20-3.40); #Monocytes 0.1 thou/uL (0.11-0.59); #Neutrophils 2.1 thou/uL (1.40-6.50); %Basophils 0.3 % (0.0-1.0); %Eosinophils 1.8 % (0.0-10.0); %Monocytes 2.4 % (0.0-10.0); %Neutrophils 60.6 % (42.0-75.0); Hemoglobin 9.6 g/dL (14.0-18.0); Mean Corpuscular HGB CONC 32.1 g/dL (32.0-36.0); Mean Corpuscular Hemoglobin 29.3 pg (27.0-31.0); Mean Corpuscular Volume 91.3 fl (78.0-98.0); Mean Platelet Volume 7.1 fL (7.4-10.4); Platelet Count 126 10x3/uL (130-400); RBC Distribution Width 16.2 % (11.5-14.5); Red Blood Cell (RBC) Count 3.26 mill/uL (4.70-6.10); White Blood Cell (WBC) Count 3.5 10x3/uL (4.8-10.8)
[2022-10-17] MEDS: Calcium Carbonate 600 MG + Vit D TAB PO SCH (09:01)
[2022-10-17] MEDS: Methocarbamol 500 MG TAB PO SCH ×2 (09:02→20:18)
[2022-10-17] MEDS: Gabapentin 400 MG CAP PO SCH (09:02)
[2022-10-17] MEDS: Naproxen 500 MG TAB PO SCH (09:02)
[2022-10-17] MEDS: Magnesium Oxide 400 MG TAB PO SCH (09:02)
[2022-10-17 09:03] LABS: ALT (SGPT) 8 U/L (8-55); AST (SGOT) 53 U/L (5-34); Albumin 2.8 g/dL (3.4-4.8); Alkaline Phosphatase 821 U/L (40-110); Anion Gap 12 mmol/L (10-20); BUN (Urea Nitrogen) 11 mg/dL (8.4-25.7); Calc. Creatinine Clearance 221 mL/min (70-130); Calcium 8.1 mg/dL (7.8-10.44); Carbon Dioxide 25 mmol/L (23-31); Chloride 102 mmol/L (98-107); Estimated GFR 123; Globulin 2.4 g/dL (2.4-3.5); Glucose 87 mg/dL (80-115); Potassium 3.9 mmol/L (3.5-5.1); Protein, Total 5.2 g/dL (5.8-8.1); Sodium 135 mmol/L (136-145)
[2022-10-17] MEDS: Tamsulosin HCl 0.4 MG CAP PO SCH (09:03)
[2022-10-17] MEDS: Polyethylene Glycol 3350 17 GM Packet PO SCH ×2 (09:03→20:17)
[2022-10-17] MEDS ORDERED: Ibuprofen 800 MG TAB PO SCH (09:45)
[2022-10-17] MEDS: cefTRIAXone\\ROCEPHIN 1 GM in Sodium Chloride 0.9% 100 ML IVPB SCH (11:28)
[2022-10-17] MEDS: fentaNYL 100 mcg/hour Patch TD SCH (13:21)
[2022-10-17] MEDS ORDERED: PEGFILGRASTIM-JMDB 6 MG/0.6 ML SYRINGE SQ SCH (14:00)
[2022-10-17] MEDS ORDERED: Methocarbamol 500 MG TAB PO SCH (15:30)
[2022-10-17] MEDS: Dexamethasone 4 MG TAB PO SCH (17:34)
[2022-10-17] MEDS: Ibuprofen 800 MG TAB PO SCH (17:34)
[2022-10-17] MEDS: Mirtazapine 15 MG Soltab PO SCH (20:17)
[2022-10-17] MEDS: Famotidine 20 MG TAB PO SCH (20:17)
[2022-10-17] MEDS: Senokot 8.6 MG TAB PO SCH (20:17)
[2022-10-17] MEDS: Pregabalin 75 MG CAP PO SCH (20:17)
[2022-10-18] MEDS: Morphine 4 MG/ML VIAL SLOW IVP PRN ×6 (01:06→22:34)
[2022-10-18] MEDS: Ibuprofen 800 MG TAB PO SCH ×3 (01:07→18:24)
[2022-10-18 05:26] LABS: Hemoglobin 9.8 g/dL (14.0-18.0); Mean Corpuscular HGB CONC 32.3 g/dL (32.0-36.0); Mean Corpuscular Hemoglobin 29.3 pg (27.0-31.0); Mean Corpuscular Volume 90.9 fl (78.0-98.0); Mean Platelet Volume 7.2 fL (7.4-10.4); Platelet Count 111 10x3/uL (130-400); RBC Distribution Width 16.1 % (11.5-14.5); Red Blood Cell (RBC) Count 3.33 mill/uL (4.70-6.10); White Blood Cell (WBC) Count 10.2 10x3/uL (4.8-10.8)
[2022-10-18 05:33] LABS: ALT (SGPT) 10 U/L (8-55); AST (SGOT) 47 U/L (5-34); Albumin 2.9 g/dL (3.4-4.8); Alkaline Phosphatase 813 U/L (40-110); Anion Gap 11 mmol/L (10-20); BUN (Urea Nitrogen) 10 mg/dL (8.4-25.7); Bilirubin, Total 1.2 mg/dL (0.2-1.2); Calc. Creatinine Clearance 221 mL/min (70-130); Calcium 7.8 mg/dL (7.8-10.44); Carbon Dioxide 24 mmol/L (23-31); Chloride 102 mmol/L (98-107); Estimated GFR 123; Globulin 2.4 g/dL (2.4-3.5); Glucose 127 mg/dL (80-115); Potassium 4.3 mmol/L (3.5-5.1); Protein, Total 5.3 g/dL (5.8-8.1); Sodium 133 mmol/L (136-145)
[2022-10-18 05:49] LABS: Anisocytosis SLIGHT = 6-15 cells (100X) (0-5/hpf); Band 8 % (5-11); Lymphocytes 6 % (21-51); MDiff Complete? YES; Monocytes 2 % (0-10); Neutrophil 84 % (42-75); Platelet Morphology Comment Appears Decreased
[2022-10-18] MEDS: Pregabalin 75 MG CAP PO SCH ×2 (09:09→20:19)
[2022-10-18] MEDS: Tamsulosin HCl 0.4 MG CAP PO SCH (09:10)
[2022-10-18] MEDS: Dexamethasone 4 MG TAB PO SCH ×2 (09:11→18:25)
[2022-10-18] MEDS: Magnesium Oxide 400 MG TAB PO SCH (09:11)
[2022-10-18] MEDS: Calcium Carbonate 600 MG + Vit D TAB PO SCH (09:11)
[2022-10-18] MEDS: Methocarbamol 500 MG TAB PO SCH ×2 (09:12→20:19)
[2022-10-18] MEDS: Polyethylene Glycol 3350 17 GM Packet PO SCH ×2 (09:13→20:25)
[2022-10-18] MEDS: cefTRIAXone\\ROCEPHIN 1 GM in Sodium Chloride 0.9% 100 ML IVPB SCH (11:57)
[2022-10-18] MEDS: Famotidine 20 MG TAB PO SCH (20:18)
[2022-10-18] MEDS: Mirtazapine 15 MG Soltab PO SCH (20:19)
[2022-10-18] MEDS: Senokot 8.6 MG TAB PO SCH (20:20)
[2022-10-19] MEDS: Morphine 4 MG/ML VIAL SLOW IVP PRN ×5 (04:17→20:26)
[2022-10-19] MEDS: Ibuprofen 800 MG TAB PO SCH ×3 (04:18→18:08)
[2022-10-19 05:03] LABS: Mean Corpuscular HGB CONC 32.6 g/dL (32.0-36.0); Mean Corpuscular Hemoglobin 29.6 pg (27.0-31.0); Mean Corpuscular Volume 90.7 fl (78.0-98.0); Mean Platelet Volume 7.8 fL (7.4-10.4); Platelet Count 120 10x3/uL (130-400); Red Blood Cell (RBC) Count 3.05 mill/uL (4.70-6.10); White Blood Cell (WBC) Count 10.7 10x3/uL (4.8-10.8)
[2022-10-19 05:35] LABS: ALT (SGPT) 12 U/L (8-55); AST (SGOT) 31 U/L (5-34); Albumin 2.9 g/dL (3.4-4.8); Alkaline Phosphatase 796 U/L (40-110); Anion Gap 9 mmol/L (10-20); BUN (Urea Nitrogen) 13 mg/dL (8.4-25.7); Bilirubin, Total 0.8 mg/dL (0.2-1.2); Calc. Creatinine Clearance 221 mL/min (70-130); Calcium 8.1 mg/dL (7.8-10.44); Carbon Dioxide 26 mmol/L (23-31); Chloride 103 mmol/L (98-107); Estimated GFR 123; Globulin 2.4 g/dL (2.4-3.5); Glucose 136 mg/dL (80-115); Potassium 4.3 mmol/L (3.5-5.1); Protein, Total 5.3 g/dL (5.8-8.1); Sodium 134 mmol/L (136-145)
[2022-10-19 05:48] LABS: Band 29 % (5-11); Hypochromia SLIGHT = 6-15 cells (100X) (0-5/hpf); Lymphocytes 3 % (21-51); MDiff Complete? YES; Monocytes 3 % (0-10); Neutrophil 65 % (42-75); Platelet Morphology Comment Appears Adequate
[2022-10-19] MEDS: Pregabalin 75 MG CAP PO SCH ×2 (09:08→20:22)
[2022-10-19] MEDS: Dexamethasone 4 MG TAB PO SCH ×2 (09:09→17:42)
[2022-10-19] MEDS: Calcium Carbonate 600 MG + Vit D TAB PO SCH (09:09)
[2022-10-19] MEDS: Methocarbamol 500 MG TAB PO SCH ×2 (09:09→20:22)
[2022-10-19] MEDS: Magnesium Oxide 400 MG TAB PO SCH (09:09)
[2022-10-19] MEDS: Tamsulosin HCl 0.4 MG CAP PO SCH (09:10)
[2022-10-19] MEDS: Polyethylene Glycol 3350 17 GM Packet PO SCH ×2 (09:10→20:09)
[2022-10-19] MEDS: cefTRIAXone\\ROCEPHIN 1 GM in Sodium Chloride 0.9% 100 ML IVPB SCH (11:42)
[2022-10-19] MEDS: Famotidine 20 MG TAB PO SCH (17:42)
[2022-10-19] MEDS: Mirtazapine 15 MG Soltab PO SCH (20:22)
[2022-10-19] MEDS: Senokot 8.6 MG TAB PO SCH (20:24)
[2022-10-20] MEDS: Ibuprofen 800 MG TAB PO SCH ×3 (04:15→16:48)
[2022-10-20 06:05] LABS: ALT (SGPT) 11 U/L (8-55); AST (SGOT) 23 U/L (5-34); Albumin 3.1 g/dL (3.4-4.8); Alkaline Phosphatase 755 U/L (40-110); Anion Gap 11 mmol/L (10-20); BUN (Urea Nitrogen) 11 mg/dL (8.4-25.7); Bilirubin, Total 0.5 mg/dL (0.2-1.2); Calc. Creatinine Clearance 206 mL/min (70-130); Calcium 8.2 mg/dL (7.8-10.44); Carbon Dioxide 25 mmol/L (23-31); Chloride 104 mmol/L (98-107); Estimated GFR 121; Globulin 2.2 g/dL (2.4-3.5); Glucose 128 mg/dL (80-115); Potassium 4.1 mmol/L (3.5-5.1); Protein, Total 5.3 g/dL (5.8-8.1); Sodium 136 mmol/L (136-145)
[2022-10-20 06:31] LABS: Anisocytosis SLIGHT = 6-15 cells (100X) (0-5/hpf); Band 10 % (5-11); Eosinophils 1 % (0-10); Hemoglobin 9.4 g/dL (14.0-18.0); Lymphocytes 9 % (21-51); MDiff Complete? YES; Mean Corpuscular HGB CONC 32.4 g/dL (32.0-36.0); Mean Corpuscular Hemoglobin 29.6 pg (27.0-31.0); Mean Corpuscular Volume 91.4 fl (78.0-98.0); Mean Platelet Volume 8.1 fL (7.4-10.4); Monocytes 3 % (0-10); Neutrophil 77 % (42-75); Platelet Count 132 10x3/uL (130-400); Platelet Morphology Comment Appears Adequate; RBC Distribution Width 16.1 % (11.5-14.5); Red Blood Cell (RBC) Count 3.17 mill/uL (4.70-6.10)
[2022-10-20] MEDS: Dexamethasone 4 MG TAB PO SCH ×2 (08:54→16:48)
[2022-10-20] MEDS: Calcium Carbonate 600 MG + Vit D TAB PO SCH (08:54)
[2022-10-20] MEDS: Magnesium Oxide 400 MG TAB PO SCH (08:57)
[2022-10-20] MEDS: Pregabalin 75 MG CAP PO SCH ×2 (08:57→20:45)
[2022-10-20] MEDS: Methocarbamol 500 MG TAB PO SCH ×2 (08:57→20:46)
[2022-10-20] MEDS: Tamsulosin HCl 0.4 MG CAP PO SCH (08:59)
[2022-10-20] MEDS: Polyethylene Glycol 3350 17 GM Packet PO SCH ×2 (08:59→20:45)
[2022-10-20] MEDS: Morphine 4 MG/ML VIAL SLOW IVP PRN ×4 (09:00→19:36)
[2022-10-20] MEDS: cefTRIAXone\\ROCEPHIN 1 GM in Sodium Chloride 0.9% 100 ML IVPB SCH (10:31)
[2022-10-20] MEDS: fentaNYL 100 mcg/hour Patch TD SCH (14:25)
[2022-10-20] MEDS: Famotidine 20 MG TAB PO SCH (20:45)
[2022-10-20] MEDS: Mirtazapine 15 MG Soltab PO SCH (20:45)
[2022-10-20] MEDS: Senokot 8.6 MG TAB PO SCH (20:46)
[2022-10-21] MEDS: Ibuprofen 800 MG TAB PO SCH ×3 (01:05→17:05)
[2022-10-21] MEDS: Morphine 4 MG/ML VIAL SLOW IVP PRN ×2 (01:07→08:17)
[2022-10-21 05:43] LABS: Band 17 % (5-11); Hemoglobin 9.5 g/dL (14.0-18.0); Hypochromia SLIGHT = 6-15 cells (100X) (0-5/hpf); Lymphocytes 12 % (21-51); MDiff Complete? YES; Mean Corpuscular HGB CONC 32.5 g/dL (32.0-36.0); Mean Corpuscular Hemoglobin 29.6 pg (27.0-31.0); Mean Corpuscular Volume 90.9 fl (78.0-98.0); Mean Platelet Volume 7.7 fL (7.4-10.4); Monocytes 1 % (0-10); Neutrophil 64 % (42-75); Platelet Count 134 10x3/uL (130-400); Platelet Morphology Comment Appears Adequate; RBC Distribution Width 15.9 % (11.5-14.5); Reactive Lymphocytes 6 % (0-10); Red Blood Cell (RBC) Count 3.21 mill/uL (4.70-6.10); White Blood Cell (WBC) Count 14.7 10x3/uL (4.8-10.8)
[2022-10-21 05:45] LABS: Anion Gap 10 mmol/L (10-20); BUN (Urea Nitrogen) 13 mg/dL (8.4-25.7); Calc. Creatinine Clearance 221 mL/min (70-130); Carbon Dioxide 25 mmol/L (23-31); Chloride 102 mmol/L (98-107); Potassium 4.3 mmol/L (3.5-5.1); Sodium 133 mmol/L (136-145)
[2022-10-21 05:46] LABS: ALT (SGPT) 27 U/L (8-55); AST (SGOT) 33 U/L (5-34); Albumin 3.1 g/dL (3.4-4.8); Alkaline Phosphatase 770 U/L (40-110); Bilirubin, Total 0.5 mg/dL (0.2-1.2); Calcium 8.1 mg/dL (7.8-10.44); Estimated GFR 123; Globulin 2.3 g/dL (2.4-3.5); Glucose 128 mg/dL (80-115); Protein, Total 5.4 g/dL (5.8-8.1)
[2022-10-21] MEDS: Tamsulosin HCl 0.4 MG CAP PO SCH (09:06)
[2022-10-21] MEDS: Dexamethasone 4 MG TAB PO SCH (09:07)
[2022-10-21] MEDS: Calcium Carbonate 600 MG + Vit D TAB PO SCH (09:08)
[2022-10-21] MEDS: Pregabalin 75 MG CAP PO SCH (09:09)
[2022-10-21] MEDS: Methocarbamol 500 MG TAB PO SCH (09:11)
[2022-10-21] MEDS: Magnesium Oxide 400 MG TAB PO SCH (09:12)
[2022-10-21] MEDS: Polyethylene Glycol 3350 17 GM Packet PO SCH (09:15)
[2022-10-21] MEDS: cefTRIAXone\\ROCEPHIN 1 GM in Sodium Chloride 0.9% 100 ML IVPB SCH (10:49)
[2022-10-21 12:21] VITALS: BP 109/65; TEMP 97.6
[2022-10-21] MEDS: Morphine 10 MG/0.5 ML ORAL SYRINGE PO PRN ×2 (13:48→17:27)
[2022-10-21] MEDS ORDERED: Dexamethasone 4 MG TAB PO SCH (17:00)
== END 2022-10-21 17:45 | disposition swing bed (61) | DRG 166 ==
LOC: ERS 12:31 → ERHOLD 18:36 → MSONC 10-04 14:06
PROVIDERS: ADMIT Family Medicine; ATTEND Family Medicine
PROC: 0PB43ZX Excision of Thoracic Vertebra, Percutaneous Approach, Diagnostic (ICD-10-PCS; 2022-10-10)
PROC: 3E03305 Introduction of Other Antineoplastic into Peripheral Vein, Percutaneous Approach (ICD-10-PCS; principal; 2022-10-14)
DX: C78.01 Secondary malignant neoplasm of right lung (principal); E43 Unspecified severe protein-calorie malnutrition; C79.51 Secondary malignant neoplasm of bone; N39.0 Urinary tract infection, site not specified; C78.02 Secondary malignant neoplasm of left lung; G89.3 Neoplasm related pain (acute) (chronic); Z20.822 Contact with and (suspected) exposure to COVID-19; C61 Malignant neoplasm of prostate; R33.9 Retention of urine, unspecified; M88.9 Osteitis deformans of unspecified bone; G47.33 Obstructive sleep apnea (adult) (pediatric); R00.0 Tachycardia, unspecified; Z79.899 Other long term (current) drug therapy; Z68.24 Body mass index [BMI] 24.0-24.9, adult; Z98.890 Other specified postprocedural states; Z80.8 Family history of malignant neoplasm of other organs or systems; Z80.1 Family history of malignant neoplasm of trachea, bronchus and lung; Z83.6 Family history of other diseases of the respiratory system; Z99.89 Dependence on other enabling machines and devices
CPT/HCPCS: 36415; 51702; 70553; 71045; 71250; 71275; 72157; 72158; 74174; 77012; 80048; 80053; 80061; 81001; 81003; 82306; 82550; 83605; 83690; 83735; 83880; 84100; 84153; 84484; 85025; 85610; 85652; 87040; 87077; 87086; 87186; 87811; 88305; 88333; 88341; 88342; 93005; 93010; 96365; 96375; A9579; J0696; J1100; J1453; J1650; J2060; J2250; J2270; J2272; J2405; J2469; J2704; J3010; J3490; J7030; J7050; J7120; J8540; J9045; J9181; Q5108; Q9967; U0002

== ENCOUNTER 2022-11-11 10:37 | Day surgery (SDC) | payer BC ==
[2022-11-11] MEDS ORDERED: Dexamethasone 10 MG/ML VIAL SLOW IVP SCH (10:45)
[2022-11-11] MEDS ORDERED: ETOPOSIDE IVPB SCH (10:45)
[2022-11-11] MEDS ORDERED: CARBOplatin 750 MG in Sodium Chloride 0.9% 250 ML 250 ML IVPB SCH (10:45)
[2022-11-11] MEDS ORDERED: PALONOSETRON HCL 0.05 MG/ML 5 ML VIAL IVP SCH (10:45)
[2022-11-11] MEDS ORDERED: SODIUM CHLORIDE 0.9% IVPB SCH (10:45)
[2022-11-11 16:00] VITALS: TEMP 97.8
== END 2022-11-11 15:30 | disposition critical access hospital (66) ==
LOC: ONC/OP 10:37
PROVIDERS: ATTEND Internal Medicine
DX: Z51.11 Encounter for antineoplastic chemotherapy (principal); C61 Malignant neoplasm of prostate; D61.818 Other pancytopenia; M06.9 Rheumatoid arthritis, unspecified
CPT/HCPCS: 96367; 96375; 96402; 96413; 96417; J1100; J1453; J3490; J7050; J9045; J9181; J9217

== ENCOUNTER 2022-11-12 10:33 | Day surgery (SDC) | payer BC ==
[~2022-11-12 10:33] MED LIST changes: +DURVALUMAB IV SCH; +ETOPOSIDE IVPB SCH; -FENTANYL 50 MCG/ML VIAL 50 MCG/ML VIAL ONE; -FLU VACC QS2022-23(6MOS UP)/PF 60 MCG/0.5 ML SYRINGE IM ONE; -Midazolam HCl 2 mg/2 ml Vial ONE; +PALONOSETRON HCL 0.05 MG/ML 5 ML VIAL ONE; +SODIUM CHLORIDE 0.9% IV SCH; +SODIUM CHLORIDE 0.9% IVPB SCH; -Sodium Bicarbonate 2.5 MEQ/5 ML VIAL ONE
[2022-11-12 11:03] VITALS: BP 112/56; TEMP 98.1
== END 2022-11-12 14:40 | disposition critical access hospital (66) ==
LOC: ONC/OP 10:33
PROVIDERS: ATTEND Internal Medicine
DX: Z51.11 Encounter for antineoplastic chemotherapy (principal); C61 Malignant neoplasm of prostate; D61.818 Other pancytopenia; M06.9 Rheumatoid arthritis, unspecified
CPT/HCPCS: 96413; 96417; J2469; J7050; J9181

== ENCOUNTER 2022-12-02 10:36 | Day surgery (SDC) | payer BC ==
[~2022-12-02 10:36] MED LIST changes: +CARBOplatin 750 MG in Sodium Chloride 0.9% 250 ML 250 ML IVPB SCH; -DURVALUMAB IV SCH; +PALONOSETRON HCL 0.05 MG/ML 5 ML VIAL IVP SCH; -PALONOSETRON HCL 0.05 MG/ML 5 ML VIAL ONE; -SODIUM CHLORIDE 0.9% IV SCH
[2022-12-02] MEDS ORDERED: PALONOSETRON HCL 0.05 MG/ML 5 ML VIAL ONE (11:08)
[2022-12-02 11:21] VITALS: BP 121/57; TEMP 98
== END 2022-12-02 15:30 ==
LOC: ONC/OP 10:36
PROVIDERS: ATTEND Internal Medicine
DX: Z51.11 Encounter for antineoplastic chemotherapy (principal); C61 Malignant neoplasm of prostate; D61.818 Other pancytopenia; M06.9 Rheumatoid arthritis, unspecified; Z79.899 Other long term (current) drug therapy
CPT/HCPCS: 96367; 96375; 96413; 96417; J2469; J7050; J9045; J9181

== ENCOUNTER 2022-12-03 09:52 | Day surgery (SDC) | payer BC ==
[~2022-12-03 09:52] MED LIST changes: -CARBOplatin 750 MG in Sodium Chloride 0.9% 250 ML 250 ML IVPB SCH; +DURVALUMAB IV SCH; -PALONOSETRON HCL 0.05 MG/ML 5 ML VIAL IVP SCH; +SODIUM CHLORIDE 0.9% IV SCH
[2022-12-03 10:47] VITALS: BP 143/65; TEMP 97.7
== END 2022-12-03 15:15 | disposition critical access hospital (66) ==
LOC: ONC/OP 09:52
PROVIDERS: ATTEND Internal Medicine
DX: Z51.11 Encounter for antineoplastic chemotherapy (principal); C61 Malignant neoplasm of prostate; D61.818 Other pancytopenia; M06.9 Rheumatoid arthritis, unspecified
CPT/HCPCS: 96413; 96417; J3490; J7050; J9173; J9181

== ENCOUNTER 2023-01-14 08:46 | Outpatient (CLI) | payer BC | END 2023-01-14 08:47 | disposition home or self-care (01) | LOC: NM 08:46 | PROVIDERS: ATTEND Internal Medicine | DX: C61 Malignant neoplasm of prostate (principal); C79.51 Secondary malignant neoplasm of bone; M06.9 Rheumatoid arthritis, unspecified; D61.818 Other pancytopenia; Z79.899 Other long term (current) drug therapy | CPT/HCPCS: 71260; 74177; 78306; A9503 ==

== ENCOUNTER 2023-01-23 14:35 | Emergency (ER) | payer BC ==
[~2023-01-23 14:35] MED LIST changes: -DURVALUMAB IV SCH; -ETOPOSIDE IVPB SCH; +Iopamidol-370 76% 500 ML MDV (1 ML CHARGE) ONE; -SODIUM CHLORIDE 0.9% IV SCH; -SODIUM CHLORIDE 0.9% IVPB SCH
[2023-01-23 16:05] LABS: #Lymphocytes 0.5 thou/uL (1.20-3.40); #Monocytes 0.6 thou/uL (0.11-0.59); #Neutrophils 7.8 thou/uL (1.40-6.50); %Basophils 0.2 % (0.0-1.0); %Eosinophils 0.3 % (0.0-10.0); %Lymphocytes 5.5 % (21.0-51.0); %Monocytes 7.2 % (0.0-10.0); %Neutrophils 86.8 % (42.0-75.0); Hemoglobin 7.9 g/dL (14.0-18.0); Mean Corpuscular HGB CONC 32.5 g/dL (32.0-36.0); Mean Corpuscular Hemoglobin 31.5 pg (27.0-31.0); Mean Corpuscular Volume 97.2 fl (78.0-98.0); Mean Platelet Volume 7.2 fL (7.4-10.4); Platelet Count 104 10x3/uL (130-400); RBC Distribution Width 16.4 % (11.5-14.5); White Blood Cell (WBC) Count 8.9 10x3/uL (4.8-10.8)
[2023-01-23 16:24] LABS: ALT (SGPT) 26 U/L (8-55); AST (SGOT) 37 U/L (5-34); Alkaline Phosphatase 531 U/L (40-110); Anion Gap 10 mmol/L (10-20); BUN (Urea Nitrogen) 16 mg/dL (8.4-25.7); Bilirubin, Total 0.5 mg/dL (0.2-1.2); Calc. Creatinine Clearance 0 mL/min (70-130); Carbon Dioxide 28 mmol/L (23-31); Chloride 107 mmol/L (98-107); Estimated GFR 115; Globulin 1.8 g/dL (2.4-3.5); Glucose 154 mg/dL (80-115); Magnesium 1.8 mg/dL (1.6-2.6); Potassium 3.9 mmol/L (3.5-5.1); Protein, Total 4.8 g/dL (5.8-8.1); Sodium 141 mmol/L (136-145)
== END 2023-01-23 20:31 | disposition home or self-care (01) ==
LOC: ERS 14:35
DX: J18.9 Pneumonia, unspecified organism (principal)
CPT/HCPCS: 36415; 71045; 71275; 80053; 83735; 83880; 84484; 85025; 93005; 96365; J1956

== ENCOUNTER 2023-02-10 13:17 | Outpatient (CLI) | payer BC | END 2023-02-10 13:18 | disposition home or self-care (01) | LOC: SCSMRI 13:17 | PROVIDERS: ATTEND Internal Medicine | DX: C61 Malignant neoplasm of prostate (principal); C41.9 Malignant neoplasm of bone and articular cartilage, unspecified; D61.818 Other pancytopenia; M06.9 Rheumatoid arthritis, unspecified; M54.50 Low back pain, unspecified; Z79.899 Other long term (current) drug therapy | CPT/HCPCS: 72157; 72158 ==